=== PATIENT | male | born 1955 | race Caucasian/White ===

== ENCOUNTER → 2023-11-09 | Outpatient (CLI) | payer BC ==
[2023-11-09 14:07] LABS: HEMATOCRIT 49.4 % (42.0-52.0); HEMOGLOBIN 16.2 g/dL (13.5-18.0)
== END ==
LOC: LAB 13:56
PROVIDERS: Urology
DX: E29.1 Testicular hypofunction (principal); N41.0 Acute prostatitis; E03.9 Hypothyroidism, unspecified; R97.20 Elevated prostate specific antigen [PSA]; R68.82 Decreased libido